=== PATIENT | male | born 1955 | race Caucasian/White ===

== ENCOUNTER → 2019-11-13 | Outpatient (CLI) | payer MEDICARE ==
[~2019-11-13] MED LIST: BENICAR40 MG PO; CRESTOR10 MG PO; GLUCOPHAGE1000 MG PO; LANTUSSOLASTAR SQ; NOVOLOG100 UNIT/1 SQ; ZOLOFT 50 MG TA50 M1 PO
== END ==
LOC: M.RAD 15:53
PROVIDERS: ATTEND Internal Medicine
DX: S29.9XXA Unspecified injury of thorax, initial encounter (principal); R07.89 Other chest pain; R07.81 Pleurodynia; X58.XXXA Exposure to other specified factors, initial encounter; Y93.89 Activity, other specified; Y92.89 Other specified places as the place of occurrence of the external cause; Y99.8 Other external cause status

== ENCOUNTER → 2020-08-08 | Outpatient (CLI) | payer MEDICARE | LOC: M.RAD 10:37 | PROVIDERS: ATTEND Internal Medicine | DX: Z87.891 Personal history of nicotine dependence (principal) ==